=== PATIENT | female | born 1995 | race African-American/Black ===

== ENCOUNTER 2017-12-07 23:02 | Emergency (ER) | payer OTHER ==
[~2017-12-07] VITALS: Ht 188 cm; Wt 63.5 kg
[2017-12-07] MEDS ORDERED: CLONAZEPAM 0.50.5 M1 PO (23:13)
[2017-12-08 00:08] LABS: HEMATOCRIT 38.2 % (37.0-47.0); HEMOGLOBIN 12.3 gm/dL (12.0-15.0); MCH 21.1 pg (26.0-34.0); MCHC 32.2 g/dL (28.0-37.0); MCV 65.4 fL (80.0-100.0); RBC 5.84 mil/uL (4.20-5.00); RDW 16.2 % (10.5-14.5); WBC 11.3 thou/uL (4.0-11.0)
[2017-12-08 00:09] LABS: URINE BILIRUBIN NEGATIVE (Negative); URINE BLOOD NEGATIVE (Negative); URINE CLARITY CLEAR; URINE COLOR YELLOW; URINE GLUCOSE-RANDOM* NEGATIVE (Negative); URINE KETONES NEGATIVE (Negative); URINE LEUKOCYTES-REFLEX NEGATIVE (Negative); URINE NITRITE-REFLEX NEGATIVE (Negative); URINE PROTEIN (DIPSTICK) NEGATIVE (Negative)
[2017-12-08 00:21] LABS: CALCIUM 8.7 mg/dL (8.5-10.1); POTASSIUM 3.7 mmol/L (3.5-5.1)
[2017-12-08 00:24] LABS: AMP/METHAMP Negative (Negative); BARBITURATES Negative (Negative); BENZODIAZEPINES Negative (Negative); COCAINE Negative (Negative); METHADONE Negative (Negative); OPIATES Negative (Negative); PCP Negative (Negative)
[2017-12-08 02:30] VITALS: BP 134/75
== END 2017-12-08 02:31 | disposition home or self-care (01) ==
LOC: ER 23:02
PROVIDERS: Emergency Medicine; Physician Assistant
DX: G40.409 Other generalized epilepsy and epileptic syndromes, not intractable, without status epilepticus (principal); Z91.018 Allergy to other foods; Z88.8 Allergy status to other drugs, medicaments and biological substances